=== PATIENT | male | born 1965 | race Caucasian/White ===

== ENCOUNTER → 2020-03-19 | Outpatient (CLI) | payer OTHER, MEDICAID | END | disposition home or self-care (01) | LOC: LABWHC1 09:36 | PROVIDERS: ATTEND Student in an Organized Health Care Education/Training Program | DX: U07.1 COVID-19 (principal) ==

== ENCOUNTER 2020-03-28 11:40 | Day surgery (SDC) | payer OTHER, MEDICAID ==
[2020-03-26 08:53] VITALS: BMI 27.4
[~2020-03-28 11:40] MED LIST: LACTATED RINGERS 1,000 ML IV SCH
[2020-03-28 12:21] VITALS: TEMP 97.7
[2020-03-28] MEDS ORDERED: LIDOCAINE 1% INJ 10MG/ML (20 ML MDV) ONE (12:44)
[2020-03-28] MEDS ORDERED: PROPOFOL 10 MG/ML 20 ML VIAL IV ONE (12:44)
--- NOTE | 2020-03-28 13:44 | P.OP ---
Date of Procedure: 03/28/20 Preoperative Diagnosis: Gi bleeding Postoperative Diagnosis: Nonulcerative dyspepsia Rectal polyps Anesthesia: MAC Surgeon: Adryan Fernando Estimated Blood Loss (ml): 0 Condition: stable Disposition: PACU Description of Procedure: Patient was brought to the endoscopy suite underwent sedation per department of anesthesia timeout performed correct patient correct procedure correct site was verified scope was passed through the oropharynx down the esophagus and into the stomach and first and second portion of the duodenum inspected no abnormalities are noted scope was withdrawn to the stomach retroflexed ample time was allowed for the stomach insufflated no significant hiatal hernia was noted antral biopsies taken to rule out H. pylori the scope was then withdrawn to the GE junction where biopsies taken to rule out Moulton's esophagitis the scope was then slowly withdrawn through the esophagus no other abnormalities were noted. Patient was turned and rectal exam was performed no gross abnormalities were noted the scope was passed from the rectum to the cecum with ease the terminal ileum was intubated no significant inflammation was noted biopsy was taken to rule out inflammatory bowel disease the scope was then slowly withdrawn through the colon being sure to visualize all galeas of the colon on the way out there were multiple polyps x 4 noted around 15 cm at the rectum. These were excised with the hot snare polypectomy. There are also some small hyperplastic polyps. Specimens were sent to pathology. Scope was retroflexed in the rectum no other gross abnormalities are noted scope was withdrawn Patient tolerated the procedure well no apparent complications follow-up with path report to determine next colonoscopy no more than 1 year due to the size and number of rectal polyps
[2020-03-28] MEDS ORDERED: ONDANSETRON 4 MG/2 ML VIAL ONE (13:59)
[2020-03-28] MEDS ORDERED: LACTATED RINGERS 1,000 ML IV ONE (14:26)
[2020-03-28 14:28] VITALS: BP 122/74; PULSE 99; RESP 16
== END 2020-03-28 14:35 | disposition home or self-care (01) ==
LOC: ORWHC2ENDO 11:40
PROVIDERS: ATTEND Student in an Organized Health Care Education/Training Program
DX: D12.8 Benign neoplasm of rectum (principal); K29.50 Unspecified chronic gastritis without bleeding; B96.81 Helicobacter pylori [H. pylori] as the cause of diseases classified elsewhere; K21.0 Gastro-esophageal reflux disease with esophagitis; Z88.0 Allergy status to penicillin; E78.5 Hyperlipidemia, unspecified; Z79.82 Long term (current) use of aspirin; Z79.899 Other long term (current) drug therapy; Z82.49 Family history of ischemic heart disease and other diseases of the circulatory system; Z98.890 Other specified postprocedural states
CPT/HCPCS: 88305; 88342; 45380; 45385; 43239; J2001; J2704

== ENCOUNTER 2020-07-31 10:02 | Emergency (ER) | payer OTHER, MEDICAID ==
[2020-07-31] MEDS ORDERED: SODIUM CHLORIDE 0.9% 1,000 ML IV ONE (10:15)
[2020-07-31] MEDS ORDERED: SODIUM CHLORIDE 0.9% 1,000 ML IV SCH (10:15)
[2020-07-31] MEDS ORDERED: MORPHINE SULFATE 2 MG/ML SYRINGE IVP STA (10:15)
[2020-07-31] MEDS ORDERED: ONDANSETRON 4 MG/2 ML VIAL IVP STA (10:15)
--- NOTE | 2020-07-31 10:24 | ED ---
Abdominal Pain HPI - General Chief Complaint: Abdominal Pain Stated Complaint: Abd/Back Pain Time Seen by Provider: 07/31/20 10:08 Source: patient Mode of arrival: ambulatory Limitations: no limitations - History of Present Illness Initial Comments: 55yo male with history of GERD, kidney stone presenting for right flank pain and lower midline abdominal pain. Pt states that 4 days ago he began experiencing and aching lower midline abdominal pain, he states that 2 day later he felt it more in the right side of his back. he states it is sharp in nature and feels it is similar in characteristic to when he had a kidney stone in the past. he states that his urine does appear to have blood in it because he was told that his urinalysis showed blood cells at the clinic he went to in [place] prior to arrival in the ER> Patient denies fevers, nausea, vomiting, diarrhea, chest pain, shortness of breath, leg swelling. Patient has no additional complaints. Upon arrival he appears nontoxic in no acute distress. States pain is present. - Related Data Home Medications Medication Instructions Recorded Confirmed Aspirin [Adult Low Dose Aspirin EC] 81 mg PO HS 03/26/20 07/31/20 Atorvastatin [Lipitor] 40 mg PO HS 03/26/20 07/31/20 Acetaminophen Tab [Tylenol] 650 mg PO Q4H PRN 07/31/20 07/31/20 Cholecalciferol [Vitamin D3 (25 1,000 unit PO DAILY 07/31/20 07/31/20 Mcg = 1000 Iu)] Esomeprazole Magnesium [NexIUM] 40 mg PO HS 07/31/20 07/31/20 Ibuprofen [Motrin Ib] 600 mg PO Q8H PRN 07/31/20 07/31/20 Simethicone [Gas-X] 125 mg PO Q12H PRN 07/31/20 07/31/20 Tamsulosin [Flomax] 0.4 mg PO HS 07/31/20 07/31/20 Previous Rx's Medication Instructions Recorded Ciprofloxacin HCl [Cipro] 500 mg PO Q12HR 10 Days #20 tab 07/31/20 metroNIDAZOLE [Flagyl] 500 mg PO TID 10 Days #30 tab 07/31/20 Allergies Allergy/AdvReac Type Severity Reaction Status Date / Time Penicillins Allergy Unknown Rash/Hives Verified 07/31/20 10:53 Review of Systems ROS Statement: Those systems with pertinent positive or pertinent negative responses have been documented in the HPI. ROS Other: All systems not noted in ROS Statement are negative. Past Medical History Past Medical History: GERD/Reflux, Hyperlipidemia Additional Past Medical History / Comment(s): enlarged prostate History of Any Multi-Drug Resistant Organisms: None Reported Past Surgical History: Orthopedic Surgery Additional Past Surgical History / Comment(s): RIGHT ROTATOR CUFF REPAIR Past Anesthesia/Blood Transfusion Reactions: No Reported Reaction Past Psychological History: No Psychological Hx Reported Smoking Status: Heavy tobacco smoker Past Alcohol Use History: None Reported Past Drug Use History: None Reported - Past Family History Mother Family Medical History: No Reported History General Exam - General Exam Comments Initial Comments: General: The patient is awake and alert, in no distress Eye: Pupils are equal, round and reactive to light, extra-ocular movements are intact. No nystagmus. There is normal conjunctiva bilaterally. No signs of icterus. Ears, nose, mouth and throat: There are moist mucous membranes and no oral lesions. Neck: The neck is supple, there is no tenderness or JVD. Cardiovascular: There is a regular rate and rhythm. No murmur, rub or gallop is appreciated. Respiratory: Lungs are clear to auscultation, respirations are non-labored, breath sounds are equal. No wheezes, stridor, rales, or rhonchi. Gastrointestinal: Soft, non-distended, lower abdominal pain diffuse, abdomen without masses or organomegaly noted. There is no rebound or guarding present. Musculoskeletal: Normal ROM, no tenderness. Strength 5/5. Sensation intact. Radial pulses equal bilaterally 2+. Neurological: A&O x 3. CN II-XII intact grossly, There are no obvious motor or sensory deficits. Coordination appears grossly intact. Speech is normal. Skin: Skin is warm and dry and no rashes or lesions are noted. Psychiatric: Cooperative, appropriate mood & affect, normal judgment. Limitations: no limitations Course Vital Signs 07/31/20 07/31/20 07/31/20 10:04 10:57 11:24 Temperature 98.6 F 97.9 F 97.9 F Pulse Rate 70 69 65 Respiratory 18 16 16 Rate Blood Pressure 143/88 133/80 132/76 O2 Sat by Pulse 98 98 98 Oximetry Medical Decision Making - Medical Decision Making mild leukocytosis. lower abdominal pain. Acute mild uncomplicated diverticulitis on CT. Patient has penicillin ALLERGY will be initiated on metronidazole and ciprofloxacin oral regimen discussed complications of diverticulitis such as perforation and abscess formation discussed the importance of return parameters and follow up with GI. Patient is agreeable to this care plan as well as discharge at this time. - Lab Data Result diagrams: 07/31/20 10:22 07/31/20 10:22 Lab Results 07/31/20 07/31/20 07/31/20 Range/Units 10:22 10:22 10:22 WBC 11.3 H (3.8-10.6) k/uL RBC 5.38 (4.30-5.90) m/uL Hgb 16.6 (13.0-17.5) gm/dL Hct 49.0 (39.0-53.0) % MCV 91.1 (80.0-100.0) fL MCH 30.9 (25.0-35.0) pg MCHC 33.9 (31.0-37.0) g/dL RDW 12.4 (11.5-15.5) % Plt Count 341 (150-450) k/uL MPV 6.5 Neutrophils % 69 % Lymphocytes % 21 % Monocytes % 5 % Eosinophils % 2 % Basophils % 1 % Neutrophils # 7.8 H (1.3-7.7) k/uL Lymphocytes # 2.4 (1.0-4.8) k/uL Monocytes # 0.5 (0-1.0) k/uL Eosinophils # 0.2 (0-0.7) k/uL Basophils # 0.2 (0-0.2) k/uL Sodium 138 (137-145) mmol/L Potassium 4.9 (3.5-5.1) mmol/L Chloride 105 (98-107) mmol/L Carbon Dioxide 27 (22-30) mmol/L Anion Gap 6 mmol/L BUN 19 (9-20) mg/dL Creatinine 1.02 (0.66-1.25) mg/dL Est GFR (CKD-EPI)AfAm >90 (>60 ml/min/1.73 sqM) Est GFR (CKD-EPI)NonAf 83 (>60 ml/min/1.73 sqM) Glucose 94 (74-99) mg/dL Calcium 9.7 (8.4-10.2) mg/dL Total Bilirubin 0.5 (0.2-1.3) mg/dL AST 32 (17-59) U/L ALT 35 (4-49) U/L Alkaline Phosphatase 79 (38-126) U/L Total Protein 8.3 H (6.3-8.2) g/dL Albumin 4.6 (3.5-5.0) g/dL Amylase 60 (30-110) U/L Lipase 55 (23-300) U/L Urine Color Colorless Urine Appearance Clear (Clear) Urine pH 6.0 (5.0-8.0) Ur Specific [place] 1.002 (1.001-1.035) Urine Protein Negative (Negative) Urine Glucose (UA) Negative (Negative) Urine Ketones Negative (Negative) Urine Blood Negative (Negative) Urine Nitrite Negative (Negative) Urine Bilirubin Negative (Negative) Urine Urobilinogen <2.0 (<2.0) mg/dL Ur Leukocyte Esterase Negative (Negative) Disposition Clinical Impression: Diverticulitis, Abdominal pain Disposition: HOME SELF-CARE Condition: Good Instructions (If sedation given, give patient instructions): Diverticulitis (ED) Additional Instructions: Please use medication as discussed. Please follow-up with family doctor in the next 2 days, recommend gastroenterology follow-up as well in next week. Please return to emergency room if the symptoms increase or worsen or for any other concerns. Prescriptions: Ciprofloxacin HCl [Cipro] 500 mg PO Q12HR 10 Days #20 tab metroNIDAZOLE [Flagyl] 500 mg PO TID 10 Days #30 tab Is patient prescribed a controlled substance at d/c from ED?: No Referrals: Emerson Trevino MD [Primary Care Provider] - 1-2 days Naz Torres MD [STAFF PHYSICIAN] - 1-2 days Time of Disposition: 11:10
[2020-07-31 10:35] LABS: Basophils # (A) 0.2 k/uL (0-0.2); Basophils % (A) 1 %; Eosinophils # (A) 0.2 k/uL (0-0.7); Eosinophils % (A) 2 %; HGB 16.6 gm/dL (13.0-17.5); Lymphocytes # (A) 2.4 k/uL (1.0-4.8); Lymphocytes % (A) 21 %; MCH 30.9 pg (25.0-35.0); MCHC 33.9 g/dL (31.0-37.0); MCV 91.1 fL (80.0-100.0); Mean Platelet Volume 6.5; Monocytes # (A) 0.5 k/uL (0-1.0); Monocytes % (A) 5 %; Neutrophils # (A) 7.8 k/uL (1.3-7.7); Neutrophils % (A) 69 %; Platelet Count 341 k/uL (150-450); RBC 5.38 m/uL (4.30-5.90); RDW 12.4 % (11.5-15.5); WBC 11.3 k/uL (3.8-10.6)
[2020-07-31 10:37] LABS: Appearance,Urine Clear (Clear); Bilirubin,Urine Negative (Negative); Blood,Urine Negative (Negative); Color,Urine Colorless; Glucose,Urine (UA) Negative (Negative); Ketones,Urine Negative (Negative); Leukocyte Esterase,Urine Negative (Negative); Nitrite,Urine Negative (Negative); Protein,Urine Negative (Negative); Specific Gravity,Urine 1.002 (1.001-1.035); Urobilinogen,Urine <2.0 mg/dL (<2.0)
[2020-07-31 10:47] LABS: ALT 35 U/L (4-49); AST 32 U/L (17-59); African American GFR (CKD) >90 (>60 ml/min/1.73 sqM); Albumin 4.6 g/dL (3.5-5.0); Alkaline Phosphatase 79 U/L (38-126); Amylase 60 U/L (30-110); Anion Gap 6 mmol/L; Blood Urea Nitrogen 19 mg/dL (9-20); Calcium 9.7 mg/dL (8.4-10.2); Carbon Dioxide 27 mmol/L (22-30); Chloride 105 mmol/L (98-107); Glucose 94 mg/dL (74-99); Lipase 55 U/L (23-300); Non-African American GFR(CKD) 83 (>60 ml/min/1.73 sqM); Potassium 4.9 mmol/L (3.5-5.1); Sodium 138 mmol/L (137-145); Total Bilirubin 0.5 mg/dL (0.2-1.3); Total Protein 8.3 g/dL (6.3-8.2)
[2020-07-31 10:59] VITALS: RESP 16; TEMP 97.9
--- NOTE | 2020-07-31 11:02 | CT ---
EXAMINATION TYPE: CT abdomen pelvis w con DATE OF EXAM: 07/31/2020 COMPARISON: INDICATION: Right flank pain and midline abdominal pain DLP: 755.1 mGycm, Automated exposure control for dose reduction was used. CONTRAST: 100 mL of Isovue 300. Study performed without Oral Contrast TECHNIQUE: Axial images were obtained from above the diaphragm to the pubic rami in the axial plane a t 5 mm thick sections. Reconstructed images are reviewed on the computer in the coronal plane. FINDINGS: Limited CT sections are obtained the lung bases. The lung bases are clear. CT ABDOMEN: Liver: Normal Spleen: Normal Pancreas: Normal Adrenal glands: The adrenal glands are normal. Gallbladder: Normal Kidneys: No masses are evident. No hydronephrosis is present. No cysts are present. Delayed images were obtained through the kidneys, which remain unremarkable. Aorta: Vascular calcification is within the aorta. Inferior vena cava: Normal. CT PELVIS: At the distal descending colon sigmoid colon junction there is some mild inflammatory change. Scatter ed diverticuli are within the descending colon and sigmoid colon. Findings are likely related to suba cute mild diverticulitis. Example image series 201 image 56-58. No free air is evident. No abscess fo rmation is evident. The study is without oral contrast. Appendix: Normal as visualized. Urinary bladder: Normal. Genitourinary structures: Prostate is prominent. Osseous structures: No suspicious lytic or sclerotic lesions. IMPRESSIONS: 1. Mild diverticulitis distal descending colon sigmoid colon junction. 2. Normal appendix
[2020-07-31 11:27] VITALS: BP 132/76; PULSE 65
== END 2020-07-31 11:28 | disposition home or self-care (01) ==
LOC: EC 10:02
DX: K57.32 Diverticulitis of large intestine without perforation or abscess without bleeding (principal); D72.829 Elevated white blood cell count, unspecified; K21.9 Gastro-esophageal reflux disease without esophagitis; E78.5 Hyperlipidemia, unspecified; N40.0 Benign prostatic hyperplasia without lower urinary tract symptoms; F17.210 Nicotine dependence, cigarettes, uncomplicated; Z79.82 Long term (current) use of aspirin; Z88.0 Allergy status to penicillin; Z79.899 Other long term (current) drug therapy
CPT/HCPCS: 99284; 96374; 96375; 96361; 36415; 80053; 82150; 83690; 85025; 81003; 74177; J2405; J2270; Q9967

== ENCOUNTER → 2021-04-24 | Outpatient (CLI) | payer OTHER, MEDICAID ==
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
== END | disposition home or self-care (01) ==
LOC: RADUSWWP 13:57
PROVIDERS: ATTEND Family Medicine
DX: R60.0 Localized edema (principal)

== ENCOUNTER → 2022-02-25 | Outpatient (CLI) | payer OTHER, MEDICAID ==
--- NOTE | 2022-02-25 12:57 | MR ---
EXAMINATION TYPE: MR shoulder LT wo con DATE OF EXAM: 02/25/2022 COMPARISON: None HISTORY: Pain L shoulder TECHNIQUE: Multiplanar, multisequence imaging of the left shoulder is performed without contrast. FINDINGS: Rotator Cuff: There is thinning of the rotator cuff tendon near the insertion on the humeral head, co monisha image 16 series 301, some local fluid signal is noted, there is some local marrow signal change present. Acromioclavicular Joint: Acromioclavicular joint shows arthropathy with mass effect on the musculoten dinous junction of supraspinatus. Distal acromial spur is present, coronal image 23 Glenohumeral Joint: Intact Labrum: The labrum appears grossly intact given limitation of non-arthrogram study. Biceps Tendon: The long head of biceps is in normal location within bicipital groove, fluid signal is present along the tendon. Bone marrow signal: Probable geode formation present at the greater tuberosity Other: No additional significant abnormality is appreciated. IMPRESSION: partial thickness tear, rotator cuff, consider impingement
== END | disposition home or self-care (01) ==
LOC: RADMRIMAIN 08:22
PROVIDERS: ATTEND Orthopaedic Surgery Hand Surgery
DX: M75.112 Incomplete rotator cuff tear or rupture of left shoulder, not specified as traumatic (principal); M25.512 Pain in left shoulder

== ENCOUNTER 2022-11-10 15:42 | Emergency (ER) | payer OTHER, MEDICAID ==
[2022-11-10 15:51] VITALS: BP 147/85; PULSE 72; RESP 18; TEMP 97.5
[2022-11-10] MEDS ORDERED: KETOROLAC 15 MG/ML 1 ML VIAL IM STA (16:17)
[2022-11-10] MEDS ORDERED: LIDOCAINE 5% PATCH TOPICAL STA (16:44)
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
== END 2022-11-10 17:11 | disposition home or self-care (01) ==
LOC: EC 15:42
DX: S79.922A Unspecified injury of left thigh, initial encounter (principal); E78.5 Hyperlipidemia, unspecified; K21.9 Gastro-esophageal reflux disease without esophagitis; F17.200 Nicotine dependence, unspecified, uncomplicated; Z79.82 Long term (current) use of aspirin; Z79.899 Other long term (current) drug therapy; Z88.0 Allergy status to penicillin; V89.2XXA Person injured in unspecified motor-vehicle accident, traffic, initial encounter; Y92.410 Unspecified street and highway as the place of occurrence of the external cause
CPT/HCPCS: 73552; 99284; 96372; J1885

== ENCOUNTER → 2023-09-13 | Outpatient (CLI) | payer OTHER, MEDICAID ==
--- NOTE | 2023-09-13 21:12 | CTL ---
IMPRESSION: CT LUNG RAD AND CT CHEST RECOMMENDATION: Lung-RADS Assessment Category assessment 2/S; recommend 12 m [facility] follow-up LDCT. S Modifier (other clinically significant findings): Prominent coronary calcifications.
== END | disposition home or self-care (01) ==
LOC: RADCTMAIN 17:09
PROVIDERS: ATTEND Internal Medicine Critical Care Medicine
DX: Z12.2 Encounter for screening for malignant neoplasm of respiratory organs (principal); F17.210 Nicotine dependence, cigarettes, uncomplicated
CPT/HCPCS: 71271

== ENCOUNTER → 2023-11-16 | Outpatient (CLI) | payer OTHER, MEDICAID ==
[2023-11-16 11:43] LABS: Basophils # (A) 0.11 X 10*3/uL (0.00-0.10); Basophils % (A) 1.2 %; Eosinophils # (A) 0.16 X 10*3/uL (0.04-0.35); Eosinophils % (A) 1.7 %; HCT 48.6 % (39.6-50.0); Lymphocytes # (A) 2.67 X 10*3/uL (0.90-5.00); Lymphocytes % (A) 27.9 %; MCH 30.1 pg (27.0-32.0); MCHC 32.9 g/dL (32.0-37.0); MCV 91.5 FL (80.0-97.0); Mean Platelet Volume 9.1 FL (9.5-12.2); Monocytes # (A) 0.75 X 10*3/uL (0.20-1.00); Monocytes % (A) 7.8 %; NRBC Per 100 WBC 0 X 10*3/uL (0.00-0.01); Neutrophils # (A) 5.84 X 10*3/uL (1.80-7.70); Neutrophils % (A) 61.1 %; Platelet Count 320 X 10*3/uL (140-440); RBC 5.31 X 10*6/uL (4.40-5.60); RDW 13.5 % (11.5-14.5); WBC 9.56 X 10*3/uL (4.50-10.00)
[2023-11-16 11:57] LABS: BUN/Creat Ratio 16.08 Ratio (12.00-20.00); Blood Urea Nitrogen 19.3 mg/dL (9.0-27.0); Calcium 9.6 mg/dL (8.7-10.3); Carbon Dioxide 27.7 mmol/L (21.6-31.8); Chloride 104 mmol/L (96-109); Glucose 107 mg/dL (70-110); Potassium 5.1 mmol/L (3.5-5.5); Sodium 141 mmol/L (135-145)
== END | disposition home or self-care (01) ==
LOC: LABPAT 07:25
PROVIDERS: ATTEND Orthopaedic Surgery
DX: Z01.812 Encounter for preprocedural laboratory examination (principal); M75.42 Impingement syndrome of left shoulder
CPT/HCPCS: 36415; 80048; 85025

== ENCOUNTER 2023-11-19 05:32 | Day surgery (SDC) | payer OTHER, MEDICAID ==
[2023-11-17 11:01] VITALS: BMI 26.6
--- NOTE | 2023-11-18 08:39 | P.HPOR ---
History of Present Illness H&P Date: 11/18/23 Chief Complaint: Left shoulder pain The patient is a 58-year-old [id number] employee who presents with left shoulder pain for the past couple of years. He's having pain with overhead activity and at night. He also notes some weakness. He's tried previous injections along was home exercises and medications without much relief. He notes daily pain that limits him. Review of Systems As per HPI Past Medical History Past Medical History: GERD/Reflux, Hyperlipidemia Additional Past Medical History / Comment(s): enlarged prostate History of Any Multi-Drug Resistant Organisms: None Reported Past Surgical History: Orthopedic Surgery Additional Past Surgical History / Comment(s): RIGHT ROTATOR CUFF REPAIR. COLONOSCOPY Past Anesthesia/Blood Transfusion Reactions: No Reported Reaction Smoking Status: Former smoker - Past Family History Mother Family Medical History: No Reported History Medications and Allergies Home Medications Medication Instructions Recorded Confirmed Type Aspirin [Adult Low Dose Aspirin EC] 81 mg PO HS 03/26/20 11/17/23 History Atorvastatin [Lipitor] 40 mg PO HS 03/26/20 11/17/23 History Acetaminophen Tab [Tylenol] 650 mg PO Q4H PRN 07/31/20 11/17/23 History Cholecalciferol [Vitamin D3 (25 1,000 unit PO DAILY 07/31/20 11/17/23 History Mcg = 1000 Iu)] Esomeprazole Magnesium [NexIUM] 40 mg PO HS 07/31/20 11/17/23 History Ibuprofen [Motrin] 800 mg PO Q6HR #30 tab 11/10/22 11/17/23 Rx Allergies Allergy/AdvReac Type Severity Reaction Status Date / Time Penicillins Allergy Unknown Rash/Hives Verified 11/17/23 10:44 Physical Examination - Shoulder left Tenderness with palpation: anterior, bicipital groove Pain: with abduction, with forward flexion ROM: forward flexion: 100 degrees ROM: internal rotation: lower lumbar ROM: external rotation: 40 degrees Crepitus with motion: Yes Strength: abduction: 4/5 Strength: external rotation: 5/5 Tests: internal impingement tests: positive, external impingment tests: positive Results Patient is a well-developed well-nourished male approximately 5 foot 3, 160 pounds of mesomorphic habitus. HEENT exam is nonfocal, neck supple. He is tender about the left shoulder anterior subacromial space. Active forward elevation 95, passive 140. Impingement test, Neer test, and speed tests are positive. His distal neurovascular exam appears intact in the left upper extremity. - Diagnostic results Shoulder MRI: image reviewed (MRI report left shoulder shows evidence of a SLAP tear along with biceps subluxation. A partial thickness tear involving the syed praspinatus is noted.) Assessment and Plan Assessment: Left shoulder impingement with partial-thickness tear cuff tear Left shoulder SLAP lesion/proximal biceps tendinosis Plan: I talked to the patient at length regarding his condition along with treatment options. At this point is quite symptomatically limited because of pain despite conservative measures. After a thorough discussion he opts to proceed with surgery. We'll plan to proceed with arthroscopic evaluation with probable subacromial decompression, rotator cuff debridement versus repair, biceps tenotomy versus tenodesis. We will likely perform that as outpatient procedure. Risks and benefits were discussed at length in layman's terms.
--- NOTE | 2023-11-18 08:44 | P.HPOR ---
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 He denies any traumatic event. He's having pain with any weightbearing activities. He's tried medications and activity modifications without much relief. Review of Systems As per HPI Past Medical History Past Medical History: GERD/Reflux, Hyperlipidemia Additional Past Medical History / Comment(s): enlarged prostate, possible hypercoagulable state History of Any Multi-Drug Resistant Organisms: None Reported Past Surgical History: Orthopedic Surgery Additional Past Surgical History / Comment(s): RIGHT ROTATOR CUFF REPAIR. COLONOSCOPY Past Anesthesia/Blood Transfusion Reactions: No Reported Reaction Smoking Status: Former smoker - Past Family History Mother Family Medical History: No Reported History Medications and Allergies Home Medications Medication Instructions Recorded Confirmed Type Aspirin [Adult Low Dose Aspirin EC] 81 mg PO HS 03/26/20 11/17/23 History Atorvastatin [Lipitor] 40 mg PO HS 03/26/20 11/17/23 History Acetaminophen Tab [Tylenol] 650 mg PO Q4H PRN 07/31/20 11/17/23 History Cholecalciferol [Vitamin D3 (25 1,000 unit PO DAILY 07/31/20 11/17/23 History Mcg = 1000 Iu)] Esomeprazole Magnesium [NexIUM] 40 mg PO HS 07/31/20 11/17/23 History Ibuprofen [Motrin] 800 mg PO Q6HR #30 tab 11/10/22 11/17/23 Rx Allergies Allergy/AdvReac Type Severity Reaction Status Date / Time Penicillins Allergy Unknown Rash/Hives Verified 11/17/23 10:44 Physical Examination - Hip right Gait: antalgic Tenderness with palpation: anterior Pain with motion: internal rotation and hip flexion ROM: flexion: 60 degrees ROM: internal rotation: 0 degrees (His pain) ROM: external rotation: 50 degrees Crepitus with motion: Yes Strength: extension: 5/5 Strength: flexion: 5/5 Strength: abduction: 5/5 Tests: impingement tests: positive Results The patient is a well-developed well-nourished male approxi-6 foot 3, 190 pounds of mesomorphic habitus. HEENT exam is nonfocal, neck supple. Passive motion of the right hip is flexion 60, external rotation 50, internal rotation -15 with pain. He has an antalgic gait pattern. His distal neurovascular appears intact in the right lower extremity. - Diagnostic results Hip x-ray: image reviewed (X-rays of the right hip obtained in the office show joint space narrowing along with femoral head collapse and a positive crescent sign.) Assessment and Plan Assessment: Right hip avascular necrosisstage IV Plan: I talked the patient regarding his condition along with treatment options. At this point he is quite symptomatic and his disease process continues to progress. After a thorough discussion he opts to proceed with surgery. We'll plan to proceed with right total hip arthroplasty utilizing an anterior approach. Risks and benefits were discussed at length in layman's terms. We will institute DVT prophylaxis postoperatively.
[2023-11-19] MEDS ORDERED: LIDOCAINE 1% (10MG/ML) FOR IV START INTRADERMA PRN (06:08)
[2023-11-19] MEDS: LACTATED RINGERS 1,000 ML IV SCH (06:16)
[2023-11-19] MEDS: DEXAMETHASONE SOD PHOSPHATE 4 MG/ML 1 ML VIAL IV ONE (06:36)
[2023-11-19] MEDS: ONDANSETRON 4 MG/2 ML VIAL IVP ONE (06:36)
[2023-11-19] MEDS: MIDAZOLAM 2 MG/2 ML VIAL IVP ONE (06:42)
[2023-11-19] MEDS ORDERED: HYDROmorphone 0.5 MG/0.5 ML SYRINGE IVP PRN (07:00)
[2023-11-19] MEDS ORDERED: MIDAZOLAM 2 MG/2 ML VIAL IV PRN (07:00)
--- NOTE | 2023-11-19 07:10 | P.ANPRN ---
Procedure Note - Anesthesia - Nerve Block Performed Left Interscalene Single Time Out Performed: Yes Date of Procedure: 11/19/23 Procedure Start Time: 06:41 Procedure Stop Time: 06:46 Location of Patient: PreOp Indication: Acute Post-Operative Pain, Analgesia, Requested by Surgeon Sedation Type: Sedate with meaningful contact maintained Preparation: Sterile Prep Position: Sitting Catheter: None Needle Types: Pajunk Needle Gauge: 21 Ultrasound used to visualize needle placement: Yes Ultrasound used to observe medication spread: Yes Injectate: 0.5% Ropivacaine (see comment for volume) (Ropiv 20ml+[id number]. Negative nerve stimulation @0.5 Ma & 0.1 ms) Blood Aspirated: No Pain Paresthesia on Injection Noted: No Resistance on Injection: Normal Image Stored and Saved: Yes Events: Uneventful and Well Tolerated
[2023-11-19] MEDS ORDERED: NEOSTIGMINE 1 MG/ML 10 ML VIAL ONE (07:31)
[2023-11-19] MEDS ORDERED: PROPOFOL 10 MG/ML 20 ML VIAL IV ONE (07:31)
[2023-11-19] MEDS ORDERED: DEXAMETHASONE SOD PHOSPHATE 4 MG/ML 1 ML VIAL ONE (07:31)
[2023-11-19] MEDS ORDERED: SUCCINYLCHOLINE CHLORIDE 200 MG/10 ML VIAL IV ONE (07:31)
[2023-11-19] MEDS ORDERED: ROCURONIUM 10 MG/ML (5 ML VIAL) IV ONE (07:31)
[2023-11-19] MEDS ORDERED: ROPIVACAINE 5 MG/ML 30 ML VIAL ONE (07:31)
[2023-11-19] MEDS ORDERED: PHENYLEPHRINE-0.9% NACL SYG 1,000 MCG/10 ML SYRINGE ONE (07:31)
[2023-11-19] MEDS ORDERED: GLYCOPYRROLATE 0.2 MG/ML 2 ML VIAL ONE (07:31)
[2023-11-19] MEDS ORDERED: fentaNYL (PF) 50 MCG/ML 2 ML AMP ONE (07:31)
[2023-11-19] MEDS ORDERED: LIDOCAINE 1% INJ 10MG/ML (20 ML MDV) ONE (07:31)
[2023-11-19] MEDS: EPINEPHrine (PF) 1 ML in SODIUM CHLORIDE 0.9% IRRIGATIO 3,000 ML IRRIGATION ONE ×4 (08:04)
[2023-11-19] MEDS: LACTATED RINGERS 1,000 ML IV ONE (09:04)
--- NOTE | 2023-11-19 09:23 | P.OP ---
Date of Procedure: 11/19/23 Preoperative Diagnosis: Left shoulder impingement/possible rotator cuff tear Postoperative Diagnosis: Left shoulder SLAP lesion/full-thickness rotator cuff tear/acromioclavicular joint arthritis Procedure(s) Performed: Left shoulder arthroscopic subacromial decompression/distal clavicular resection/biceps tenotomy/rotator cuff repair Implants: Arthrex 4.75 mm swivel lock anchor x 4 Anesthesia: PRADEEP, nohemi Surgeon: Kyaw Montesinos Machine Biller #1: Carlitos Handy Estimated Blood Loss (ml): 10 Pathology: none sent Condition: stable Disposition: PACU Indications for Procedure: The patient is a 58-year-old male who presents with progressive left shoulder pain and weakness despite conservative measures. A discussion of the risks and benefits of operative intervention versus continued conservative measures was made with the patient. He opted to proceed with surgery. Operative risks include infection, neurovascular injury, development of blood clots, possible tendon rerupture, possible postoperative stiffness, possible need for subsequent procedures was discussed. Informed consent was obtained. Operative Findings: As below Description of Procedure: The patient was brought to the operating room, and after induction of general anesthesia was placed in a beachchair position. A preoperative interscalene block was placed for postoperative analgesia. I examined the left shoulder. There was no gross block to passive motion or gross glenohumeral instability. The left upper extremity was prepped and draped in normal fashion. The bony outlines the acromion, distal clavicle, and coracoid process were outlined with a skin marker. The glenohumeral joint was inflated with 50 mL of saline utilizing a spinal needle from posterior approach. A posterior portal was made through a 5 mm skin incision 1 cm medial and inferior to the posterior lateral border time. A blunt trocar was used to easily into the joint. Diagnostic arthroscopy was performed. An anterior portal was made just lateral to the coracoid process entering the joint above the subscapularis tendon. The subscapularis tendon appeared to be intact. Anterior labrum was intact. The inferior recess was inspected. The posterior labrum was intact. There was a high-grade partial-thickness tear of the long head of the biceps involving interarticular portion along with instability of the biceps anchor. It was elected to proceed with release at this point. This was released from the superior labrum with electrocautery and was allowed to retract to the bicipital groove. On inspection the rotator cuff, a full-thickness tear involving the supraspinatus was noted with minimal retraction. The arthroscope was placed into the subacromial space. A lateral portal was made 2 centimeters inferior to the anterior lateral border of the acromion. The rotator cuff was then mobilized with a traction suture. This was then easily brought back to the greater tuberosity. The soft tissue on the undersurface of the acromion was debrided with a motorized shaver and electrocautery clearly defining the anterior medial and lateral borders as well as the distal clavicle. An anterior inferior acromioplasty was performed with a motorized ciara starting anterolateral, then extending this posteriorly, then extending this medially. I converted to a flat acromion and this was verified in the posterior and lateral viewing portals. There is hypertrophy of the distal clavicle impinging on the subacromial space. The distal 8 mm of the clavicle was resected with a motorized bur. The greater tuberosity was lightly decorticating with a shaver down to a bleeding bony surface. An accessory superior lateral portals made just off the lateral edge of the acromion for anchor placement. 2 anchors were then placed just off the articular surface with the appropriate starting awl. 4.75 mm anchors preloaded with #2 fiber tape were placed. Good purchase was obtained. These fiber tapes were then passed the rotator cuff with a scorpion suture passer. A lateral row was created crisscrossing these tapes. 4.75 mm swivel lock anchor x 2 were placed laterally. Good purchase was obtained. Final arthroscopic view showed adequate compression at the footprint. The arthroscope was then removed. The portals were closed with simple 3-0 nylon sutures. A sterile dressing was applied in addition to an abductor brace. The patient was then awoken from general anesthesia and transferred to recovery room in good condition. Blood loss was estimated at 10 mL. No complications were incurred. Sponge and needle counts were correct in the case. Carlitos SOW assisted and the major components of the case to include arm positioning, anchor placement, and rotator cuff repair.
[2023-11-19 09:40] VITALS: TEMP 96.8
[2023-11-19 10:26] VITALS: BP 146/63; PULSE 68; RESP 16
== END 2023-11-19 10:35 | disposition home or self-care (01) ==
LOC: OR 05:32
PROVIDERS: ATTEND Orthopaedic Surgery
DX: M75.42 Impingement syndrome of left shoulder (principal); E78.5 Hyperlipidemia, unspecified; K21.9 Gastro-esophageal reflux disease without esophagitis; Z98.890 Other specified postprocedural states; Z87.891 Personal history of nicotine dependence; Z79.82 Long term (current) use of aspirin; Z79.899 Other long term (current) drug therapy; Z88.0 Allergy status to penicillin
CPT/HCPCS: 64415; 29827; 29826; C1713 ×2; C1894; J2250; J0330; J1100; J2710; J0690; J2405; J0171; J2001; J3010; J2795; J2704; J2371